=== PATIENT | female | born 1965 | race American Indian/Alaskan Native ===

== ENCOUNTER 2021-06-02 12:46 | Emergency (ER) | payer SELFPAY ==
[2021-06-02] MEDS ORDERED: cloNIDine 0.2 MG TAB PO ONE (13:02)
[2021-06-02] MEDS ORDERED: hydrOXYzine PAMOATE 25 MG CAP PO ONE (13:15)
[2021-06-02] MEDS ORDERED: MECLIZINE 25 MG TAB PO ONE (13:15)
[2021-06-02] MEDS ORDERED: METOCLOPRAMIDE 10 MG/2 ML INJ IV ONE (13:16)
--- NOTE | 2021-06-02 13:21 | Emergency Department Report ---
HPI - General Chief Complaint: High BP Time Seen by Provider: 06/02/21 13:01 - HPI HPI: Room 3 The patient is a 55-year-old female present with chief complaint of dizziness. The patient states last night she began to feel dizzy and anxious at the same time. Patient states she was sitting down and the dizziness began. Patient denies headache but admits to nausea and vomiting. Patient states she has a history of anxiety. Patient states she has been compliant with her blood pressure medication. When asked how she is feeling currently the patient replies she feels "nervous and jittery." ED Past Medical Hx - Past Medical History Hx Hypertension: Yes Hx Congestive Heart Failure: Yes Hx Psychiatric Treatment: Yes (Anxiety) - Surgical History Past Surgical History?: No - Family History Family history: no significant - Social History Smoking Status: Never Smoker Substance Use Type: None (Denies illicit drug use), Alcohol (Occasional) - Medications Home Medications: Home Medications Medication Instructions Recorded Confirmed Last Taken Type Meclizine [Antivert] 25 mg PO TID PRN #20 06/02/21 Unknown Rx hydrOXYzine PAMOATE [Vistaril] 50 mg PO Q6HR PRN #10 capsule 06/02/21 Unknown Rx ED Review of Systems ROS: Stated complaint: ANXIETY/HYPERTENSION Other details as noted in HPI Constitutional: no symptoms reported Eyes: denies: eye pain ENT: denies: throat pain Respiratory: no symptoms reported Cardiovascular: denies: chest pain Endocrine: no symptoms reported Gastrointestinal: nausea, vomiting Genitourinary: denies: dysuria Musculoskeletal: denies: back pain Neurological: vertigo. denies: headache Psychiatric: anxiety Physical Exam - Physical Exam Vital Signs: Vital Signs 06/02/21 06/02/21 06/02/21 12:52 13:11 13:12 Temperature 99.2 F Pulse Rate 98 H 100 H Respiratory 18 12 Rate Blood Pressure 219/120 227/107 [Left] O2 Sat by Pulse 100 100 100 Oximetry Vital Signs 06/02/21 06/02/21 06/02/21 12:52 13:08 13:11 Temperature 99.2 F Pulse Rate 98 H 100 H Respiratory 18 12 Rate Blood Pressure Blood Pressure 219/120 227/107 [Left] O2 Sat by Pulse 100 99 100 Oximetry 06/02/21 06/02/21 06/02/21 13:12 13:16 13:22 Temperature Pulse Rate 95 H 93 H Respiratory 22 Rate Blood Pressure 222/161 222/161 Blood Pressure [Left] O2 Sat by Pulse 100 99 Oximetry 06/02/21 06/02/21 06/02/21 13:40 13:46 13:50 Temperature Pulse Rate 102 H 95 H 89 Respiratory 16 14 19 Rate Blood Pressure 181/102 212/119 212/119 Blood Pressure [Left] O2 Sat by Pulse 99 98 97 Oximetry 06/02/21 06/02/21 06/02/21 14:04 14:17 14:20 Temperature Pulse Rate Respiratory 24 21 Rate Blood Pressure 212/119 216/124 206/105 Blood Pressure [Left] O2 Sat by Pulse 100 97 Oximetry 06/02/21 06/02/21 14:30 15:06 Temperature Pulse Rate 88 Respiratory 15 18 Rate Blood Pressure 191/104 Blood Pressure 160/89 [Left] O2 Sat by Pulse 96 97 Oximetry Physical Exam: GENERAL: The patient is well-developed well-nourished female lying on stretcher not appearing to be in acute distress. [] HEENT: Normocephalic. Atraumatic. Extraocular motions are intact. Patient has moist mucous membranes. No nystagmus noted NECK: Supple. No meningitic signs are noted. Trachea midline CHEST/LUNGS: Clear to auscultation. There is no respiratory distress noted. HEART/CARDIOVASCULAR: Regular. There is no tachycardia. There is no gallop rub or murmur. ABDOMEN: Abdomen is soft, nontender. Patient has normal bowel sounds. There is no abdominal distention. SKIN: There is no rash. There is no edema. There is no diaphoresis. NEURO: The patient is awake, alert, and oriented. The patient is cooperative. The patient has no focal neurologic deficits. The patient has normal speech. Cranial nerves II through XII grossly intact. GCS 15 MUSCULOSKELETAL: There is no evidence of acute injury. ED Course Vital Signs 06/02/21 06/02/21 06/02/21 12:52 13:11 13:12 Temperature 99.2 F Pulse Rate 98 H 100 H Respiratory 18 12 Rate Blood Pressure 219/120 227/107 [Left] O2 Sat by Pulse 100 100 100 Oximetry - Reevaluation(s) Reevaluation #1: 06/02/21 15:20 Patient states her dizziness is improved. Patient requesting prescription for anxiety medication to go home ED Medical Decision Making - Lab Data Result diagrams: 06/02/21 13:32 06/02/21 13:32 Laboratory Tests 06/02/21 06/02/21 06/02/21 13:32 13:32 13:32 WBC 11.5 H RBC 3.88 Hgb 10.6 Hct 31.9 MCV 82 MCH 27 L MCHC 33 RDW 25.3 H Plt Count 296 VBG pH Sodium 133 L Potassium 3.4 L Chloride 87.8 L Carbon Dioxide 26 Anion Gap 23 BUN 8 Creatinine 0.5 L Estimated GFR > 60 BUN/Creatinine Ratio 16 Glucose 113 H Calcium 9.6 Magnesium 1.50 L Total Creatine Kinase CK-MB (CK-2) CK-MB (CK-2) Rel Index Troponin T TSH 2.780 Free T4 1.20 06/02/21 06/02/21 13:32 13:32 WBC RBC Hgb Hct MCV MCH MCHC RDW Plt Count VBG pH 7.522 H Sodium Potassium Chloride Carbon Dioxide Anion Gap BUN Creatinine Estimated GFR BUN/Creatinine Ratio Glucose Calcium Magnesium Total Creatine Kinase 119 CK-MB (CK-2) 1.7 CK-MB (CK-2) Rel Index 1.4 Troponin T < 0.010 TSH Free T4 - EKG Data -: EKG Interpreted by Me EKG shows normal: sinus rhythm, axis Rate: normal - EKG Data When compared to previous EKG there are: previous EKG unavailable Interpretation: other (No ischemic changes seen) - Differential Diagnosis Vertigo, hypertensive urgency, hypertensive emergency, symptomatic Critical care attestation.: If time is entered above; I have spent that time in minutes in the direct care of this critically ill patient, excluding procedure time. ED Disposition Clinical Impression: Vertigo, Anxiety, Hypertension Disposition: 01 HOME / SELF CARE / HOMELESS Is pt being admited?: No Does the pt Need Aspirin: No Condition: Stable Instructions: Hypertension (ED), Managing Your Hypertension, Hypertension, Adult, [id number] Additional Instructions: Return to the emergency department should you develop worsening symptoms, inability to tolerate food or liquids, high fever or any other concerns Prescriptions: Meclizine [Antivert] 25 mg PO TID PRN #20 PRN Reason: Vertigo hydrOXYzine PAMOATE [Vistaril] 50 mg PO Q6HR PRN #10 capsule PRN Reason: Anxiety Referrals: [facility] [Provider Group] - 3-5 Days DEANNE RAGLAND MD [Staff Physician] - 3-5 Days Time of Disposition: 15:22
[2021-06-02 14:01] LABS: Creatine Kinase MB 1.7 ng/mL (0.0-4.0)
[2021-06-02 14:15] LABS: Hematocrit 31.9 % (30.3-42.9); Hemoglobin 10.6 gm/dl (10.1-14.3); Mean Corpuscular HGB Conc 33 % (30-34); Mean Corpuscular Volume 82 fl (79-97); Platelet Count 296 K/mm3 (140-440); Red Blood Count 3.88 M/mm3 (3.65-5.03)
--- NOTE | 2021-06-02 14:15 | Cat Scan Report ---
. CT BRAIN: 06/02/2021 INDICATION / CLINICAL INFORMATION: Dizziness, nausea. COMPARISON: None available. FINDINGS: BRAIN/INTRACRANIAL STRUCTURES: Unenhanced CT images of the brain demonstrate no evidence of acute abn ormality. Ventricles and sulci are slightly prominent in size, consistent with some mild diffuse cerebral atrop hy for age. There is no evidence of acute ischemic injury, hemorrhage, or mass. There are no abnormal extra-axial fluid collections. EXTRACRANIAL STRUCTURES: Unremarkable. IMPRESSION: No acute abnormality All CT scans at this location are performed using dose reduction to ALARA by means of automated expos ure control. Signer Name: Jesus Velazquez MD Signed: 06/02/2021 2:11 PM Workstation Name: [id number]
[2021-06-02 14:16] LABS: Free T4 (Free Thyroxine) 1.2 ng/dL (0.76-1.46)
[2021-06-02 14:41] LABS: Blood Urea Nitrogen 8 mg/dL (7-17); Calcium 9.6 mg/dL (8.4-10.2); Hemolysis Index 6; Red Cell Distribution Width 25.3 % (13.2-15.2)
[2021-06-02 14:42] LABS: BUN/Creatinine Ratio 16
[2021-06-02] MEDS ORDERED: MAGNESIUM SULFATE 2 GM/50 ML BAG IV ONE (14:42)
[2021-06-02] MEDS ORDERED: POTASSIUM CHLORIDE ER 20 MEQ TAB PO ONE (14:47)
[2021-06-02 18:13] VITALS: BP 162/99
[2021-06-02 18:42] LABS: Eosinophils % (Manual) 0 % (0.0-4.3); Monocytes % (Manual) 0 % (0.0-7.3); Total Cells Counted 100
[2021-06-02 18:43] LABS: Anisocytosis 2+; Hypochromasia 1+
[2021-06-02 18:44] LABS: Platelet Estimate Consistent w Auto
--- NOTE | 2021-06-05 14:02 | Electrocardiograph Report ---
[facility] Test Date: 2021-06-02 Test Time: 13:37:53 Pat Name: NIMESH MOTT Department: Room: Gender: F Group Controller: BP : 1965 Requested By: WIL RAMACHANDRAN Order Number: [id number] Reading MD: Estela Bella Measurements Intervals [place] Rate: 93 P: 70 [place]: 117 QRS: 58 QRSD: 72 T: -29 QT: 376 QTc: 469 Interpretive Statements Sinus rhythm Probable LVH with secondary repol abnrm No previous ECG available for comparison Electronically Signed On 06-05-2021 14:02:14 EDT by Estela Bella
== END 2021-06-02 15:43 | disposition home or self-care (01) ==
LOC: ED 12:46
DX: F41.9 Anxiety disorder, unspecified (principal); R42 Dizziness and giddiness; I11.0 Hypertensive heart disease with heart failure; I50.9 Heart failure, unspecified
CPT/HCPCS: 36415; 70450; 80048; 82550; 82553; 82805; 83735; 84439; 84443; 84484; 85007; 85025; 93005; 96365; 96375; 99284; J2765; J3475